=== PATIENT | female | born 1980 | race Caucasian/White ===

== ENCOUNTER 2016-11-27 11:57 | Emergency (ER) | payer MEDICAID ==
[~2016-11-27] VITALS: Ht 152.4 cm; Wt 102.3 kg
[2016-11-27] MEDS ORDERED: FLUORESCEIN SODIUM 1 MG STRIP OU ONE (12:45)
[2016-11-27] MEDS ORDERED: TETRACAINE HCL VISCOUS 0.5% 5 ML OPHTHALMIC SOLUTION OU ONE (12:45)
[2016-11-27 13:34] VITALS: BP 131/75
[2016-11-27] MEDS ORDERED: CIPROFLOXACIN HCL 0.3% 3.5 GM OPHTHALMIC OINTMENT OU ONE (13:45)
[2016-11-27] MEDS ORDERED: TOBRAMYCIN SULFATE 0.3% OU ONE (13:45)
[2016-11-27] MEDS ORDERED: GENTAMICIN SULFATE 0.3% 3.5 GM OPHTHALMIC OINTMENT OU ONE (14:00)
== END 2016-11-27 14:23 | disposition home or self-care (01) ==
LOC: EMS 11:58
DX: H10.9 Unspecified conjunctivitis (principal); Z88.6 Allergy status to analgesic agent
CPT/HCPCS: 99283

== ENCOUNTER 2017-12-30 19:03 | Emergency (ER) | payer MEDICAID ==
[~2017-12-30] VITALS: Ht 152.4 cm; Wt 89.5 kg
[2017-12-30] MEDS ORDERED: ALBUTEROL SULFATE HFA 90 MCG/PUFF 8 GM INHALER IH ONE (21:45)
[2017-12-30] MEDS ORDERED: IPRATROPIUM BROMIDE 0.5 MG/2.5 ML NEB SOLUTION NEB ONE (21:45)
[2017-12-30] MEDS ORDERED: ALBUTEROL SULFATE 2.5 MG/0.5 ML NEB SOLUTION NEB ONE (21:45)
[2017-12-30] MEDS ORDERED: DEXAMETHASONE SOD PHOS 4 MG/ML 5 ML VIAL IM ONE (23:15)
[2017-12-30 23:53] VITALS: BP 130/88
== END 2017-12-30 23:57 | disposition home or self-care (01) ==
LOC: EMS 19:04
DX: J98.01 Acute bronchospasm (principal); J02.9 Acute pharyngitis, unspecified; Z88.6 Allergy status to analgesic agent
CPT/HCPCS: 71045; 81025; 94640; 96372; 99283; J1100; J3535

== ENCOUNTER 2018-04-11 15:59 | Emergency (ER) | payer MEDICAID ==
[~2018-04-11] VITALS: Ht 152.4 cm; Wt 100.0 kg
[2018-04-11] MEDS ORDERED: FLUORESCEIN SODIUM 1 MG STRIP OU ONE (17:45)
[2018-04-11] MEDS ORDERED: PROPARACAINE HCL 0.5% 15 ML OPHTHALMIC SOLUTION OU ONE (17:45)
[2018-04-11] MEDS ORDERED: CIPROFLOXACIN HCL 0.3% 2.5 ML OPHTHALMIC SOLUTION OD ONE (18:15)
[2018-04-11 18:26] VITALS: BP 118/78
== END 2018-04-11 18:59 | disposition home or self-care (01) ==
LOC: EMS 16:00
DX: S05.01XA Injury of conjunctiva and corneal abrasion without foreign body, right eye, initial encounter (principal); Z88.6 Allergy status to analgesic agent; X58.XXXA Exposure to other specified factors, initial encounter; Y93.89 Activity, other specified; Y92.89 Other specified places as the place of occurrence of the external cause; Y99.8 Other external cause status

== ENCOUNTER 2019-05-02 18:31 | Emergency (ER) | payer MEDICAID ==
[~2019-05-02] VITALS: Ht 170.2 cm; Wt 104.5 kg
[2019-05-02 20:45] VITALS: BP 129/69
== END 2019-05-02 21:12 | disposition home or self-care (01) ==
LOC: EMS 18:32
DX: J03.90 Acute tonsillitis, unspecified (principal); Z88.6 Allergy status to analgesic agent